=== PATIENT | male | born 1990 | race Caucasian/White ===

== ENCOUNTER 2025-04-12 11:24 | Emergency (ER) | payer MEDICAID ==
[~2025-04-12] VITALS: Ht 175.3 cm; Wt 72.0 kg
[2025-04-12 11:28] VITALS: O2SAT 98
[2025-04-12] MEDS: LIDOCAINE HCL 1% 20ML VIAL INL ONE (12:15)
[2025-04-12 13:05] LABS: BASOPHILS % 0.9 % (0.0-2.0); EOSINOPHILS % 0.9 % (0.0-5.0); HEMATOCRIT. 41.1 % (42.0-52.0); HEMOGLOBIN. 13.8 g/dL (14.0-18.0); LYMPHOCYTES % 20.2 % (20.0-50.0); MEAN PLATELET VOLUME 7.5 fl (7.4-10.4); MONOCYTES % 8.3 % (2.0-8.0); NEUTROPHILS % 69.7 % (40.0-76.0); PLATELET 314 x1000/uL (130-400); RED BLOOD CELL COUNT 4.60 mill/uL (4.7-6.1); RED CELL DISTRIBUTION WIDTH 13.4 % (11.6-14.6)
[2025-04-12] MEDS: ACETAMINOPHEN 325MG TABLET PO ONE (13:20)
[2025-04-12 13:25] LABS: CREATININE 0.7 mg/dL (0.6-1.3); UREA NITROGEN BLOOD < 5 mg/dL (9-23)
[2025-04-12 15:25] VITALS: BP 109/67; PULSE 78; RESP 16; TEMP 36.7; O2SAT 99
[2025-04-12] MEDS ORDERED: IOHEXOL-300 100 ML BOTTLE ONE (16:10)
== END 2025-04-12 15:38 | disposition home or self-care (01) ==
LOC: ER 11:24
DX: S31.119A Laceration without foreign body of abdominal wall, unspecified quadrant without penetration into peritoneal cavity, initial encounter (principal); F41.9 Anxiety disorder, unspecified; W26.9XXA Contact with unspecified sharp object(s), initial encounter; Y93.89 Activity, other specified; Y92.89 Other specified places as the place of occurrence of the external cause; Y99.8 Other external cause status
CPT/HCPCS: 99285; 74177; 80048; 85025; 36415; 12002; Q9967